=== PATIENT | male | born 1995 | race Caucasian/White ===

== ENCOUNTER 2016-10-20 20:22 | Emergency (ER) | payer MEDICAID ==
[2016-10-20 21:00] VITALS: BP 98/61; PULSE 84; TEMP 98.6; O2SAT 98
--- NOTE | 2016-10-20 21:30 | C.PDOC ---
History Of Present Illness 20 yo male come in for evaluation of Right eye pain, redness and discharges noted for past 3 days. Otherwise, pt denies known trauma or injury, denies contact use,recent illness, fever, chills, headache, dizziness, vertigo, blurry vision, floaters, " curtain fall on eye" or blindness, or any other vision changes, denies FB sensation or light sensitivity, denies pain or discomfort on eye movement, denies any other active physical complaints.. Ambulate to Ed for evaluation, not in any apparent distress. Time Seen by Provider: 10/20/16 21:08 Chief Complaint (Nursing): Eye Problem History Per: Patient Onset/Duration Of Symptoms: Gradual Current Symptoms Are (Timing): Still Present Past Medical History Reviewed: Historical Data, Nursing Documentation, Vital Signs Vital Signs: Last Vital Signs Temp 98.6 F 10/20/16 20:56 Pulse 84 10/20/16 20:56 Resp 20 10/20/16 21:37 BP 98/61 L 10/20/16 20:56 Pulse Ox 98 10/20/16 21:53 - Medical History PMH: Chronic Kidney Disease Family History: States: No Known Family Hx - Social History Hx Alcohol Use: Yes Hx Substance Use: No - Immunization History Hx Tetanus Toxoid Vaccination: Yes Hx Influenza Vaccination: Yes Hx Pneumococcal Vaccination: No Review Of Systems Except As Marked, All Systems Reviewed And Found Negative. Constitutional: Negative for: Fever, Chills Eyes: Positive for: Conjunctivae Inflammation, Redness. Negative for: Vision Change, Eyelid Inflammation ENT: Negative for: Ear Discharge, Nose Discharge, Nose Congestion, Throat Pain, Throat Swelling Cardiovascular: Negative for: Chest Pain Respiratory: Negative for: Cough, Shortness of Breath Skin: Negative for: Rash Neurological: Negative for: Weakness, Numbness, Altered Mental Status, Headache , Dizziness Physical Exam - Physical Exam Appears: Well, Non-toxic, No Acute Distress Skin: Normal Color, Warm, No Rash Head: Normacephalic Eye(s): bilateral: PERRL, EOMI (no pain or limitation on extraocular movemnet B/ L), right: Other (mild conjunctival injection with scant dry white discharge. No periorbital edema or erythema, no eyelids edema or erythema.) Ear(s): Bilateral: Normal Nose: No Flaring Oral Mucosa: Moist, No Drooling Throat: Normal, No Erythema, No Exudate, No Drooling Neck: Supple Extremity: No Pedal Edema Neurological/Psych: Oriented x3, Normal Speech ED Course And Treatment O2 Sat by Pulse Oximetry: 98 Pulse Ox Interpretation: Normal Progress Note: On re-evaluation, pt is afebrile, hemodynamicaly stable. Non- toxic. PulseOx 98% RA. Right eye: exam c/w conjunctival injection likely secondary to bact. infection. No pain on extraocular movemnet, no periorbital edema or erythema. VA: R20/20, L20/20, B/L 20/15 w/o correction. ENT; no acute findings. Abx qtt given. Pt advised and ref. to F/u with Opht in 1-2 days for re-eavl. return to ED if any worsening or new changes. Disposition - Disposition Referrals: Eric Wellington MD [Staff Provider] - Disposition: HOME/ ROUTINE Disposition Time: 21:28 Condition: STABLE Additional Instructions: Use medication as prescribed Follow up with Ophtalmology in 2-3 days for re-evaluation. Return to ED if any worsening or new changes. Prescriptions: Neomycin/Polymyxin/Dexamethaso [Dexamethasone/Neomycin/Polymyxin 5 Ml] 2 drop RIGHTEYE Q6 #1 bottle Instructions: Conjunctivitis (ED) - Clinical Impression Clinical Impression: Conjunctivitis
[2016-10-20 21:37] VITALS: RESP 20
== END 2016-10-20 21:37 | disposition home or self-care (01) ==
LOC: C.ER 20:22
DX: H10.9 Unspecified conjunctivitis (principal)